=== PATIENT | male | born 1980 | race Caucasian/White ===

== ENCOUNTER 2021-08-16 20:11 | Emergency (ER) | payer OTHER ==
[2021-08-16] MEDS ORDERED: Sodium Chloride 0.9% 1000 ML 1,000 ML ONE (20:28)
[2021-08-16] MEDS ORDERED: Sodium Chloride 0.9% 1000 ML 1,000 ML IV SCH (20:30)
[2021-08-16 21:09] LABS: Absolute Neutrophil Ct (ANC) 3.64 (1.4-6.9); Basophil (Absolute #) 0.03 (0-0.4); Eosinophil % 5.3 % (0.00-5.0); Eosinophil (Absolute #) 0.42 (0-0.5); Hematocrit 40.1 % (42-50); Hemoglobin 13.6 gm/dl (12.5-18.0); Lymphocyte (Absolute #) 3.29 (1.0-4.6); Lymphocytes % 41.7 % (24.0-44.0); Mean Corpuscular Hemoglobin 31.2 pg (26-32); Mean Corpuscular Hgb Concent. 33.9 g/dl (32-36); Mean Platelet Volume 9.4 fl (7.5-11.0); Monocyte (Absolute #) 0.51 (0.0-1.3); Monocytes % 6.5 % (0.0-12.0); Neutrophil % 46.1 % (36.0-66.0); Platelet Count 339 K/mm3 (150-450); Red Blood Count 4.36 M/mm3 (4.1-5.6); Red Cell Distribution Width 13.7 % (11.5-14.0); White Blood Count 7.9 K/mm3 (4.0-10.5)
[2021-08-16 21:10] LABS: Appearance CLEAR (CLEAR); Bilirubin NEGATIVE (NEGATIVE); Dipstick done @ ? MAIN LAB; Glucose NEGATIVE (NEGATIVE); Ketones NEGATIVE (NEGATIVE); Nitrite NEGATIVE (NEGATIVE); Ph 6.5 (5-6); Protein,Urine Dip NEGATIVE (Negative); RBC TRACE-INTACT Ery/ul (0-5); Urobilinogen 0.2 mg/dL (0-1)
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
[2021-08-16 21:21] LABS: ALBUMIN 4.3 g/dL (3.5-5.0); ALKALINE PHOSPHATASE 63 U/L (38-126); ANION GAP 15.6 MEQ/L (5-15); BLOOD UREA NITROGEN 7 mg/dL (9-20); CHLORIDE 106 mmol/L (98-107); Carbon Dioxide 23 mmol/L (22-30); Creatinine 1 0.69 mg/dL (0.66-1.25); EST GLOMERULAR FILTRATION RATE > 60.0 ML/MIN; ETHYL ALCOHOL 250 mg/dL (0-10); Glucose 103 mg/dL (74-106); Potassium 4.2 mmol/L (3.5-5.1); SGOT/AST 21 U/L (17-59); SGPT/ALT 16 U/L (0-50); SODIUM 141 mmol/L (137-145); Total Protein 7.1 g/dL (6.3-8.2)
[2021-08-16 21:25] LABS: Amphetamine,Urine POSITIVE (NEGATIVE); Barbiturate,Urine NEGATIVE (NEGATIVE); Benzodiazepine,Urine NEGATIVE (NEGATIVE); Cocaine,Urine NEGATIVE (NEGATIVE); Methadone,Urine NEGATIVE (NEGATIVE); Opiate,Urine NEGATIVE (NEGATIVE); PCP,Urine NEGATIVE (NEGATIVE); THC,Urine POSITIVE (NEGATIVE)
[2021-08-16 22:07] VITALS: BP 106/69; PULSE 89
[2021-08-16 22:44] VITALS: O2SAT 100
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
== END 2021-08-16 23:00 ==
LOC: ED 20:11
DX: Z04.1 Encounter for examination and observation following transport accident (principal); F10.129 Alcohol abuse with intoxication, unspecified; F12.90 Cannabis use, unspecified, uncomplicated; F15.90 Other stimulant use, unspecified, uncomplicated; Y90.8 Blood alcohol level of 240 mg/100 ml or more
CPT/HCPCS: 36000; 36415; 70450; 71260; 72125; 74177; 80053; 80307; 81015; 84484; 85025; 93005; 93041; 94760; 99285; G0480